=== PATIENT | female | born 1995 | race Two or more races ===

== ENCOUNTER 2025-01-05 21:09 | Outpatient (CLI) | payer OTHER ==
[~2025-01-05] VITALS: Ht 157.5 cm; Wt 61.7 kg
[2025-01-05 19:51] VITALS: BP 105/67
[2025-01-05] MEDS ORDERED: PRENATA CHEWAB1 EACH PO (21:16)
[2025-01-05] MEDS ORDERED: LEVOTHYROXINE50 MC1 PO (21:18)
[2025-01-05] MEDS ORDERED: LEVOXYL100 MCG PO (21:19)
[2025-01-05 21:35] LABS: HEMATOCRIT 34.5 % (36.0-45.00); HEMOGLOBIN 11.9 g/dL (12.0-15.00); MEAN CELL VOLUME 92.8 fL (80.00-100.00); MEAN CORPUSCULAR HEMOGLOBIN 32.1 pg (27.00-32.0); MEAN CORPUSCULAR HGB CONC 34.6 g/dl (32.0-36.0); PLATELET COUNT 233 K/uL (150-450); RED BLOOD COUNT 3.71 M/uL (4.00-6.00); RED CELL DISTRIBUTION WIDTH 13.6 % (11.5-14.5); URINE APPEARANCE Clear; URINE BILIRRUBIN Negative (NEGATIVE); URINE BLOOD Negative; URINE COLOR Yellow; URINE GLUCOSE Negative (NEGATIVE); URINE KETONE Negative (NEGATIVE); URINE LEUKOCYTE Small; URINE NITRATE Negative; URINE PROTEIN Negative (NEGATIVE); URINE UROBILINOGEN 0.2 E.U./dl
[2025-01-05 21:39] LABS: URINE BACTERIA 1370.5 uL (0.0-1933); URINE EPITHELIAL CELLS 28.4 uL (0.0-38.8); URINE RBC 13.2 uL (0.0-20.8); URINE WBC 74.8 uL (0.0-23.2)
[2025-01-05 21:46] LABS: URINE CAST 0.29 uL (0.0-1.40)
[2025-01-05 23:33] VITALS: BP 106/66; O2SAT 100
== END 2025-01-06 07:11 | disposition left against medical advice (07) ==
LOC: OBS/DEL 21:09
PROVIDERS: ATTEND Obstetrics & Gynecology
DX: O26.892 Other specified pregnancy related conditions, second trimester (principal); Z3A.25 25 weeks gestation of pregnancy